=== PATIENT | female | born 1955 | race Caucasian/White ===

== ENCOUNTER 2023-12-27 10:31 | Outpatient (REF) | payer OTHER, SELFPAY ==
[2023-12-27 13:30] LABS: Alanine Aminotransferase 13 U/L (0-31); Albumin Level 4.3 g/dL (3.5-5.0); Alkaline Phosphatase 31 U/L (39-117); Anion Gap 12 (12-20); Aspartate Amino Transferase 13 U/L (5-31); Bilirubin Total 0.2 mg/dL (0.0-1.0); Blood Urea Nitrogen 39 mg/dL (9-16); Calcium 9.9 mg/dL (8.4-10.2); Carbon Dioxide 30 mmol/L (22-29); Chloride 105 mmol/L (96-108); Cholesterol 247 mg/dL (<200); Estimated Glomerular Filt Rate 35; Glucose Random 148 mg/dL (60-115); HDL Cholesterol 58 mg/dL (>40); LDL Cholesterol Calculated 132 mg/dL (<100); Potassium 4.7 mmol/L (3.3-5.1); Sodium 142 mmol/L (135-145); Total Protein 7.7 g/dL (6.5-8.0); Triglycerides 285 mg/dL (<150)
[2023-12-27 13:57] LABS: Creatinine Urine 78.73 mg/dL; Microalbum/Creatinine Ratio Ur 337.8 ug/mg cr (<30)
[2023-12-28 07:48] LABS: ~Hepatitis C Antibody Nonreactive (Nonreactive)
== END 2023-12-27 10:32 | disposition home or self-care (01) ==
LOC: HO.HHCL 10:31
PROVIDERS: Visit Provider General Practice
DX: E11.9 Type 2 diabetes mellitus without complications (principal)
CPT/HCPCS: 36415; 80053; 80061; 82043; 82570; 86803

== ENCOUNTER 2024-08-17 07:37 | Outpatient (REF) | payer OTHER, SELFPAY ==
--- NOTE | ~2024-08-17 | FL_ITS ---
EXAMINATION: XR FLUOROSCOPY BARIUM SWALLOW WITH AIR CLINICAL INFORMATION: Dysphagia. Pain in left neck. COMPARISON: None TECHNIQUE: Fluoroscopic air contrast upper GI examination was performed utilizing standard techniques with thin and thick barium and effervescent granules. Numerous spot images were obtained. FINDINGS: Lateral cine images of the oropharynx and hypopharynx demonstrate normal swallow mechanism with normal epiglottic inversion and soft palate elevation. On the initial swallow there was laryngeal penetration with thick barium. Subsequently there was gross tracheal aspiration, in which the examination was immediately terminated. Hypopharyngeal structures appear normal without evidence of mass or diverticulum. 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 Dual and single contrast images of the esophagus demonstrate a normal caliber and contour. 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 No masses or ulcerations are seen. Esophageal peristalsis is mildly disorganized. FLUOROSCOPY TIME: 1 minute 33 seconds Number of Spot Images: 0 Number of Cine: 5 DOSE AREA PRODUCT: 717.2 uGy-m2 (microgray-meter squared) FL/FL barium swallow with air IMPRESSION: 1. Gross tracheal aspiration was observed, in which the exam was immediately terminated. 2. Large bridging anterior osteophyte involving C3-C5 that is causing mild posterior compression of the hypopharynx. 3. 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 4. 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 This, in combination with severe cricopharyngeal achalasia results in moderate intraluminal narrowing of the cervical esophagus. This procedure was performed by Boone Borrego PA-C, and supervised by Dr. Skelton Electronically signed by: Nik Skelton MD 08/17/2024 04:28 PM [facility]
== END 2024-08-17 07:38 | disposition home or self-care (01) ==
LOC: HO.XRAY 07:37
PROVIDERS: PCP General Practice; Visit Provider Nurse Practitioner Primary Care
DX: R13.10 Dysphagia, unspecified (principal)
CPT/HCPCS: 74221

== ENCOUNTER → 2024-08-17 07:38 | Outpatient (BNV) | payer OTHER, SELFPAY | PROVIDERS: PCP General Practice; Visit Provider Physician Assistant Surgical | DX: R13.10 Dysphagia, unspecified (principal) | CPT/HCPCS: 74221 ==

== ENCOUNTER 2025-06-21 08:24 | Outpatient (REF) | payer OTHER, SELFPAY ==
--- NOTE | ~2025-06-21 | US_ITS ---
EXAMINATION: US RETROPERITONEAL LIMITED (RENAL ONLY) CLINICAL INFORMATION: Flank pain.. COMPARISON: None available. TECHNIQUE: Real-time imaging of the kidneys. FINDINGS: RIGHT KIDNEY: 11.2 x 4.3 x 5.5 cm (SAG x AP x TRV). The kidney is normal in size, contour, and echogenicity. Renal cortical thickness is normal. No calculi or focal parenchymal lesions. No hydronephrosis. LEFT KIDNEY: 10.5 x 5.2 x 5.8 cm (SAG x AP x TRV). The kidney is normal in size, contour, and echogenicity. Renal cortical thickness is normal. No calculi or focal parenchymal lesions. No hydronephrosis. US/US renal BI IMPRESSION: Normal renal ultrasound.. Electronically signed by: Nik Skelton MD 06/21/2025 08:55 AM EDT
--- OUTSIDE RECORDS SUMMARY | 2025-06-21 08:45 | XMS_ITS | Encounter Summary ---
Author Organization [employer] Address [address] [facility] 7t [place] [address] Care Team Providers Care Civil Estimator Name Role Phone Amanda Ramirez MD Primary Care Provider [phone] Encounter Details Date Type Department Care Team (Late st Contact Info) Description 12/08/2022 Orders Only [facility] MED & PEDS [address] [place], [place] [phone] Pam Gordillo LPN Social History Tobacco Use Types Packs/Day Years Used Date Smoking Tobacco: Never Assessed Comments Unknown Sex and Gender Information Value Date Recorded Sex Assigned at Female 07/26/2022 10:21 AM EDT Legal Sex Female 10:21 AM EDT Gender Identity Female 12/26/2023 4:57 PM EDT Sexual Orientation Choose not to disclose 2021 10:21 AM EDT documented as of this encounter Plan of Treatment Not on file documented as of this encounter Visit Diagnoses Not on filedocumented in this encounter Care Teams Civil Estimator Relationship Specialty Start Date End Date Amanda Ramirez MD [address] [place], [place] [phone] PCP - General Family Medicine 07/31/20 documented as of this encounter
--- OUTSIDE RECORDS SUMMARY | 2025-06-21 08:45 | XMS_ITS | Encounter Summary ---
Author Organization [employer] Address [address] [facility] [address] [place] [address] Care Team Providers Care Trestle Mainternance Laborer Name Role Phone Amanda Ramirez MD Primary Care Provider [phone] Encounter Details Date Type Department Care Team (Late st Contact Info) Description 10/24/2024 Orders Only [place] [facility] [address] [place], [place] [phone] Provider, MD Amalia Social History Tobacco Use Types Packs/Day Years Used Date Smoking Tobacco: Every Day Cigarettes Smokeless Tobacco: Never Housing Stability Answer Date Recorded What is your housing situation today? I have ame chong 12/19/[address] you li ve. Do you have problems with any of the following? None of the above 12/19/2023 Food Insecurity Answer Date Recorded Within the past 12 months, y ou worried that your food would run out before you got money to buy more: Never True 12/19/2023 Within the past 12 months,th e food you bought just didn't last and you didn't have enough money to get more: Never True Transportation Answer Date Recorded In the past 12 months, has l ack of transportation kept you from medical appts, meetings, work or from getting things needed for daily living? No 12/19/2023 Utilities Answer Date Recorded In the past 12 months, has t he electric, gas, oil or water company threatened to shut off services in your home? No 12/19/2023 Depression Answer Date Recorded Patient Health Questionnaire-2 Score 2 07/27/2024 Comments Unknown Sex and Gender Information Value Date Recorded Sex Assigned at Female 07/26/2022 10:21 AM EDT Legal Sex Female 10:21 AM EDT Gender Identity Female 12/26/2023 4:57 PM EDT Sexual Orientation Choose not to disclose 2021 10:21 AM EDT documented as of this encounter Plan of Treatment Not on file documented as of this encounter Procedures Procedure Name Priority Date/Time Associated Diagnosis Comments CT SOFT TISSUE NECK W CONTRAST Routine 10/18/2024 12:32 PM EST documented in this encounter Results * CT SOFT TISSUE NECK W CONTRAST (10/18/2024 12:32 PM EST) Anatomical Region Laterality Modality Computed Tomogra phy us Historical Provider MD ISSA CT PROCEDURES Final R esult documented in this encounter Visit Diagnoses Not on filedocumented in this encounter Care Teams Trestle Mainternance Laborer Relationship Specialty Start Date End Date Amanda Ramirez MD [address] [place] [id number] PCP - General Family Medicine 07/31/20 documented as of this encounter
--- OUTSIDE RECORDS SUMMARY | 2025-06-21 08:45 | XMS_ITS | Clinical Summary ---
Author Organization [address] [facility] Address [address] [place] [address] Phone Care Team Providers Care Mine Environmental Engineer Name Role Phone Amanda Ramirez MD Primary Care Provider [phone] Allergies No known active allergies Medications lisinopril-hydr oCHLOROthiazide (PRINZIDE,ZESTO RETIC) 10-12.5 mg per tablet Take 1 tablet by mouth 1 (one) time each day. Active cholecalciferol (VITAMIN D-3) 50 mcg (2,000 unit) capsule Take 1 capsule (2,000 Units total) by mouth 1 (one) time each day. 06/19/2024 Active aspirin 81 mg EC tablet Take 1 tablet (81 mg total) by mouth 1 (one) time each day. Active cetirizine (ZyrTEC) 10 mg tablet Take 1 tablet (10 mg total) by mouth 1 (one) time each day in the morning. Active sertraline (ZOLOFT) 50 mg tablet TAKE 1 TABLET (50 MG) BY MOUTH ONCE PER DAY. 08/22/2024 Active metFORMIN XR (GLUCOPHAGE-XR) 500 mg 24 hr tablet TAKE 1 TABLET (500 MG) BY MOUTH IN THE MORNING Active Active Problems Problem Noted Date Diagnosed Date Alcohol abuse 09/10/2005 Anxiety state 09/10/2005 Asthma 09/10/2005 Depression 09/10/2005 Immunizations Name Administration Dates Next Due Td, Unspecified 03/25/2004 Surgical History Surgery Date Site/Laterality Comments TONSILLECTOMY PROCEDURE: HISTORICAL TONSILLECTOMY Medical History Medical History Date Comments Depressive disorder, not els ewhere classified 09/10/2005 DX:Depressive disorder, not elsewhere classified Anxiety state, unspecified 09/10/2005 DX:An xiety state, unspecified Unspecified asthma(493.90) 09/10/2005 DX:Un specified asthma(493.90) Alcohol abuse, unspecified 09/10/2005 DX:Al cohol abuse, unspecified Family History Relation Name Status Comments Brother 1 Alive Brother 2 Alive Brother 3 diabetes Brother 4 diabetes Daughter 1 Alive HIV Daughter 2 Alive Father MVA, CAD. diabe albina Mother CAD Son Alive Social History Tobacco Use Types Packs/Day Years Used Date Smoking Tobacco: Former Cigarettes Q uit: 06/26/2006 Alcohol Use Standard Drinks/Week Comments No 0 (1 standard drink = 0.6 oz pur e alcohol) Comments Unknown Sex and Gender Information Value Date Recorded Sex Assigned at Not on file Legal Sex Female 7:29 AM EST Gender Identity Not on file Sexual Orientation Not on file Obstetrics History Last Filed Vital Signs Vital Sign Reading Time Taken Comments Blood Pressure 158/76 10/02/2024 8:28 AM EST Pulse 76 10/02/2024 8:28 AM EST Temperature - - Respiratory Rate - - Oxygen Saturation - - Inhaled Oxygen Concentration - - Weight 106 kg (233 lb) 10/02/2024 8:28 AM EST Height 172.7 cm (5' 8 ) 10/02/2024 8:28 AM EST Body Mass Index 35.43 10/02/2024 8:28 AM EST Plan of Treatment Upcoming Encounters Date Type Department Care Team (Late st Contact Info) Description 09/13/2025 1:50 PM EST Office Visit Gastroenterology - [place] [address] [facility] [address] [place] [phone] Chava Draper MD [address] [facility] [address] [place] [address] Health Maintenance Due Date Last Done Comments Breast Cancer Screening 1955 Diabetes: Annual Foot Exam 1963 Diabetes: Annual Retina Eye Exam 1965 Hepatitis A Vaccines (1 of 2 - Risk 2-dose series) 1972 Pneumococcal Vaccine: 50+ Years (1 of 2 - PCV) 1972 RSV Immunization Adult Patients (1 - Risk 60-74 years 1-dose series) 2013 Zoster Vaccines (3 of 3) 03/02/2022 022, 12/17/2016 Colorectal Cancer Screening: Colonoscopy 09/06/2024 Falls Risk Assessment 09/06/2024 Osteoporosis Screening (Bone Density Screening) 09/06/2024 Social Influencers of Health Screening 09/06/2024 Depression Screening 09/26/2024 Diabetes: Annual Urine Albumin-Creatinine Ratio (uACR) 10/02/2024 Diabetes: Blood Sugar Contro l Test (HGBA1C) 01/24/2025 07/27/2024 COVID-19 Vaccine ( - 2023-2 5 season) 2025 Influenza Vaccine (#1) 2025 , 06/11/2019, 07/13/2016 Diabetes: Annual GFR (Glomerular Filtration Rate) 10/02/2025 10/02/2024, 03/30/2010 Hypertension/CHF/CAD Annual BMP Blood Test 10/02/2025 10/02/2024, 03/30/2010 DTaP,Tdap,and Td Vaccines (3 - Td or Tdap) 07/20/2026 07/20/2016, 03/25/2004 Cholesterol Screening (Lipid Panel) 12/26/2028 12/27/2023, 03/30/2010 Hepatitis C Screening Completed 12/27/2023 HIB Vaccines Aged Out No longer eligi ble based on patient's age to complete this topic HPV Vaccines Aged Out No longer eligi ble based on patient's age to complete this topic Hepatitis B Vaccines Aged Out No long er eligible based on patient's age to complete this topic IPV Vaccines Aged Out No longer eligi ble based on patient's age to complete this topic MMR Vaccines Aged Out No longer eligi ble based on patient's age to complete this topic Meningococcal ACWY Vaccine Aged Out N o longer eligible based on patient's age to complete this topic Meningococcal B Vaccine Aged Out No l onger eligible based on patient's age to complete this topic RSV Immunization Patients Under 20 months Aged Out No longer eligible b ased on patient's age to complete this topic Varicella Vaccines Aged Out No longer eligible based on patient's age to complete this topic Procedures Procedure Name Priority Date/Time Associated Diagnosis Comments COMPREHENSIVE METABOLIC PANEL Routine 10/02/2024 9:12 AM EST Neck pain on left side Cervical osteophyte Achalasia of the cricopharyngeus muscle Abnormal barium swallow Aspiration pneumonia, unspecified aspiration pneumonia type, unspecified laterality, unspecified part of lung ([facility] V24, [facility] V28) LIPID PANEL Routine 03/30/2010 from Last 3 Months or Most Recently Relevant to Health Maintenance Results * (ABNORMAL) Comprehensive metabolic panel (10/02/2024 9:12 AM EST) Pathologist [facility] Sodium 135 133 - 145 mmol/L LAB CHEMISTRY METHOD 10/02/2024 4:16 PM [facility] Potassium 5.2 3.5 - 5.5 mmol/L LAB CHEMISTRY METHOD 10/02/2024 4:16 PM [facility] Chloride 107 96 - 110 mmol/L LAB CHEMISTRY METHOD 10/02/2024 4:16 PM [facility] CO2 26 21 - 32 mmol/L LAB CHEMISTRY METHOD 10/02/2024 4:16 PM [facility] Anion Gap 2(L) 3 - 11 LAB CHEMISTRY METHOD 10/02/2024 4:16 PM [facility] Glucose 142(H) 70 - 100 mg/dL LAB CHEMISTRY METHOD 10/02/2024 4:16 PM [facility] BUN 35(H) 5 - 25 mg/dL LAB CHEMISTRY METHOD 10/02/2024 4:16 PM [facility] Creatinine 1.62(H) 0.50 - 1.10 mg/dL LAB CHEMISTRY METHOD 10/02/2024 4:16 PM [facility] eGFR 34(L) >=60 mL/min/1. 73m2 LAB CHEMISTRY METHOD 10/02/2024 4:16 PM [facility] Comment:Calculation based on the Chronic Kidney Disease Epidemiology Collaboration (CKD-EPI) equation refit without adjustment for race. BUN/Creatinine Ratio 21.6 LAB CHEMISTRY METHOD 10/02/2024 4:16 PM [facility] Calcium 9.7 8.5 - 10.5 mg/dL LAB CHEMISTRY METHOD 10/02/2024 4:16 PM [facility] AST (SGOT) 14 10 - 42 unit/L LAB CHEMISTRY METHOD 10/02/2024 4:16 PM [facility] ALT (SGPT) 17 10 - 60 unit/L LAB CHEMISTRY METHOD 10/02/2024 4:16 PM [facility] Alkaline Phosphatase 38(L) 42 - 121 unit/L LAB CHEMISTRY METHOD 10/02/2024 4:16 PM [facility] Total Protein 7.6 6.0 - 8.0 g/dL LAB CHEMISTRY METHOD 10/02/2024 4:16 PM [facility] Albumin 4.0 3.2 - 5.0 g/dL LAB CHEMISTRY METHOD 10/02/2024 4:16 PM [facility] Total Bilirubin 0.3 0.0 - 1.4 mg/dL LAB CHEMISTRY METHOD 10/02/2024 4:16 PM [facility] Blood Venous blood specimen / Unknown Venipuncture / Unknown 10/02/2024 9:12 AM EST 10/02/2024 9:12 AM EST us Jose Alberto MODI LAB BLOOD ORDERABLES Final Resu lt [facility] [address] [place] [address], * (ABNORMAL) Lipid panel (03/30/2010) LDL/HDL Ratio 4 0 - 4 Triglycerides 192(A) 0 - 150 mg/dL Cholesterol 227(A) 0 - 200 mg/dL HDL 56 >=40 mg/dL LDL Cholesterol 133(A) 0 - 100 mg/dL Blood Venous blood specimen / Unknown us Historical Provider LAB BLOOD ORDERABLES Roxie l Result from Last 3 Months or Most Recently Relevant to Health Maintenance Insurance [facility] Care Teams Mine Environmental Engineer Relationship Specialty Start Date End Date Amanda Ramirez MD [address] [place] [id number] PCP - General Candy Starch Mold Printer 09/06/24
--- OUTSIDE RECORDS SUMMARY | 2025-06-21 08:45 | XMS_ITS | Encounter Summary ---
Author Organization [employer] Address [address] [facility] [address] 7[address] [place] [address] Care Team Providers Care Compliance Paralegal Name Role Phone Amanda Ramirez MD Primary Care Provider [phone] Reason for Visit * Reason Comments Med Refill Encounter Details Date Type Department Care Team (Late st Contact Info) Description 05/13/2025 Refill [facility] MEDICINE [address] [place], [place] [phone] Amanda Ramirez MD [address] [place], [place] [phone] Flank pain; Esophageal web; Aspiration pneumonia of left lung due to regurgitated food, unspecified part of lung (CMS/HCC) Social History Tobacco Use Types Packs/Day Years Used Date Smoking Tobacco: Every Day Cigarettes Smokeless Tobacco: Never Alcohol Answer Date Recorded How often do you have a drink containing alcohol ? 3 02/10/2025 How many drinks containing a lcohol do you have on a typical day when you are drinking? 1 02/10/2025 How often do you have six or more drinks on one occasion? 0 02/10/2025 Depression Answer Date Recorded Patient Health Questionnaire-9 Score 25 05/13/2025 Patient Health Questionnaire-9 Score 25 05/13/2025 Last PHQ-9: Questionnaire Data Not on file 0 05/13/2025 Housing Stability Answer Date Recorded What is your housing situation today? I have ame chong 05/03/[address] you li ve. Do you have problems with any of the following? None of the above 05/03/2025 Food Insecurity Answer Date Recorded Within the past 12 months, y ou worried that your food would run out before you got money to buy more: Never True 05/03/2025 Within the past 12 months,th e food you bought just didn't last and you didn't have enough money to get more: Never True 04/2025 Transportation Answer Date Recorded In the past 12 months, has l ack of transportation kept you from medical appts, meetings, work or from getting things needed for daily living? No 05/03/2025 Utilities Answer Date Recorded In the past 12 months, has t he electric, gas, oil or water company threatened to shut off services in your home? No 05/03/2025 Depression Answer Date Recorded Patient Health Questionnaire-2 Score 6 05/13/2025 Internet Access Answer Date Recorded Internet Access Q1 Yes 05/03/2025 Internet Access Q2 Not on file 05/03/2025 Comments No Sex and Gender Information Value Date Recorded Sex Assigned at Female 07/26/2022 10:21 AM EDT Legal Sex Female 10:21 AM EDT Gender Identity Female 12/26/2023 4:57 PM EDT Sexual Orientation Choose not to disclose 2021 10:21 AM EDT documented as of this encounter Functional Status * Over the past 2 weeks, how often have you been bothered by any of the following problems? Question Answer Date of Assessment Author Patient Health Questionnaire-2 Score 6 05/13/2025 1:58 PM EDT Zeinab Beach [place] * Little interest or pleasure in doing things Answer Date of Assessment Author Nearly every day 05/13/2025 1:58 PM EDT Zeinab Palencia MA * Feeling down, depressed, or hopeless Answer Date of Assessment Author Nearly every day 05/13/2025 1:58 PM EDT Zeinab Palencia MA * Trouble falling or staying asleep, or sleeping too much Answer Date of Assessment Author Nearly every day 05/13/2025 1:58 PM EDT Zeinab Palencia MA * Feeling tired or having little energy Answer Date of Assessment Author Nearly every day 05/13/2025 1:58 PM EDT Zeinab Palencia MA * Poor appetite or overeating Answer Date of Assessment Author Nearly every day 05/13/2025 1:58 PM EDT Zeinab Palencia MA * Feeling bad about yourself - or that you are a failure or have let yourself or your family down Answer Date of Assessment Author Nearly every day 05/13/2025 1:58 PM EDT Zeinab Palencia MA * Trouble concentrating on things, such as reading the newspaper or watching television Answer Date of Assessment Author Nearly every day 05/13/2025 1:58 PM EDT Zeinab Palencia MA * Moving or speaking so slowly that other people could have noticed? Or the opposite - being so fidgety or restless that you have been moving around a lot more than usual. Answer Date of Assessment Author Nearly every day 05/13/2025 1:58 PM EDT Zeinab Palencia MA * Thoughts that you would be better off or hurting yourself in some way Answer Date of Assessment Author Several days 05/13/2025 1:58 PM BELKIST Zeinab Prieto MA * Patient Health Questionnaire-9 Score Answer Date of Assessment Author 05/13/2025 1:58 PM EDT Zeinab Prieto MA * How difficult have these problems made it for you to do your work, take care of things at home, or get along with other people? Answer Date of Assessment Author Very difficult 05/13/2025 1:58 PM EDT Zeinab Prieto MA * Over the last 2 weeks, how often have you been bothered by any of the following problems? Question Answer Date of Assessment Author Feeling nervous, anxious, or on edge 3 05/13/2025 1:58 PM EDT Zeinab Beach MA Not being able to stop or control worrying 3 05/13/2025 1:58 PM BELKIST Zeinab Beach MA Worrying too much about different things 3 05/13/2025 1:58 PM BELKIST Zeinab Beach MA Trouble relaxing 2 05/13/2025 1:58 PM EDT Zeinab Banda MA Being so restless that it is hard to sit still 3 05/13/2025 1:58 PM EDT Zeinab Beach MA Becoming easily annoyed or irritable 3 05/13/2025 1:58 PM EDT Zeinab Beach MA Feeling afraid as if something awful might happen 2 05/13/2025 1:58 PM EDT Zeniab Palencia MA HAWA-7 Total Score 19 05/13/2025 1:58 PM EDT Zeinab Beach MA documented as of this encounter Plan of Treatment Not on file documented as of this encounter Visit Diagnoses Diagnosis Flank pain Abdominal pain, unspecified site Esophageal web Congenital tracheoesophageal fistula, esophageal atresia and stenosis Aspiration pneumonia of left lung due to regurgitated food, unspecified part of lung (CMS/[facility]) documented in this encounter Additional Health Concerns Assessment Noted Time PHQ-9 Depression Total Score: 25 025 1:58 PM EDT documented as of this encounter Care Teams Compliance Paralegal Relationship Specialty Start Date End Date Amanda Ramirez MD [address] [place] [id number] PCP - General Family Medicine 07/31/20 documented as of this encounter
--- OUTSIDE RECORDS SUMMARY | 2025-06-21 08:45 | XMS_ITS | Encounter Summary ---
Author Organization [employer] Address [address] [facility] 7t [place] [address] Care Team Providers Care Buckle Inspector Name Role Phone Amanda Ramirez MD Primary Care Provider [phone] Encounter Details Date Type Department Care Team (Late st Contact Info) Description 03/07/2023 Orders Only [facility] MEDICINE [address] [place], [place] [phone] Franci Mathis LPN Social History Tobacco Use Types Packs/Day [...] on filedocumented in this encounter Care Teams Buckle Inspector Relationship Specialty Start Date End Date Amanda Ramirez MD [address] [place], [place] [phone] PCP - General Family Medicine 07/31/20 documented as of this encounter
--- OUTSIDE RECORDS SUMMARY | 2025-06-21 08:45 | XMS_ITS | Clinical Summary ---
Author Organization [employer] Address [address] [place] [address] Care Team Providers Care Laser Printing Operator Name Role Phone Amanda Ramirez MD Primary Care Provider Allergies No known active allergies Medications * This document contains information received from the source organization and may not represent a complete record from that organization. cetirizine (ZyrTEC) 10 MG tablet TAKE 1 TABLET BY MOUTH EVERY DAY IN THE MORNING 90 tablet 3 5 Active sertraline (Zoloft) 50 MG tabletIndications :Anxiety state,Depressive disorder Take 1 tablet (50 mg) by mouth Once per day. 90 tablet 3 5 Active aspirin (Aspirin Low Dose) 81 MG EC tabletIndications :Essential hypertension Take 1 tablet (81 mg) by mouth Once per day. 90 tablet 3 5 Active cholecalciferol VITAMIN D (Vitamin D-3) 50 MCG (2000 UT) capsule Take 1 capsule (50 mcg) by mouth Once per day. 90 capsule 3 5 Active lisinopril-hydroC HLOROthiazide 10-12.5 MG tabletIndications :Essential hypertension Take 1 tablet by mouth Once per day. 90 tablet 3 5 Active fluticasone (Flonase) 50 MCG/ACT nasal spray SPRAY 1 TO 2 SPRAYS INTO EACH NOSTRIL ONCE PER DAY. SHAKE GENTLY. BEFORE FIRST USE, PRIME PUMP. AFTER USE, CLEAN TIP AND REPLACE CAP. 48 mL 3 5 Active modafinil (Provigil) 100 MG tablet Take 1 tablet (100 mg) by mouth Once per day. 30 tablet 5 Active Active Problems Problem Noted Date Diagnosed Date Stage 3a chronic kidney disease 05/14/2025 Assessment & Plan (05/14/2025 11:04 AM EDT): Reviewed most recent Cr 1.6 and eGFR 34 Repeat labs Encouraged hydration and avoid NSAIDs Flank pain 02/10/2025 Assessment & Plan (02/10/2025 7:09 PM EDT): Pain in low back and flanks with positive R SLR Doubt infection, as abscence of symptoms/fever. She may have repeat kidney stones, so ordered renal ultrasound to rule that out or in. Increase fluids, anthony acidified fluids in the meantime. - will prescribe Prednisone and Flexeril for sciatica and back muscle spasms - ER precautions for fever, worsening pain despite medication Aspiration pneumonia of left lung 08/28/2024 Assessment & Plan (08/28/2024 1:10 PM EST): Suspect aspiration pneumonia/oral infection as cause of swelling Will treat with Augmentin x 10 days Esophageal web 08/28/2024 Assessment & Plan (05/14/2025 11:02 AM EDT): Referred to GI for EGD and dilation, she is still thinking about whether to get this done Phone number given to schedule, encouraged this due to choking risk Assessment & Plan (02/10/2025 7:02 PM EDT): Referred to GI for EGD and dilation, she is still thinking about whether to get this done Having facial pain and pain in throat- possible aspiration pneumonia, or local infection Assessment & Plan (08/28/2024 1:06 PM EST): Referred to GI for EGD and dilation Cervical arthritis 08/28/2024 Cricopharyngeal achalasia 08/28/2024 Foot pain 12/26/2023 Nicotine dependence 12/26/2023 Peripheral vascular disease 12/26/2023 Assessment & Plan (12/27/2023 1:52 PM EDT): Still with pain after vein procedure at [facility] two years ago Does not want to see another vascular surgeon currently, so will defer further evaluation at this time Essential hypertension 10/25/2021 Assessment & Plan (05/14/2025 10:59 AM EDT): At goal Continue current regimen Assessment & Plan (02/10/2025 7:00 PM EDT): Has not taken medication yet today because she is in pain Declines repeating BP or further intervention Recommend resuming BP medication as soon as possible Assessment & Plan (08/28/2024 1:08 PM EST): Continue combo therapy Labs checked today Not on statin-- declines, will continue to revisit Taking ASA 81mg Assessment & Plan (12/27/2023 1:50 PM EDT): Continue combo therapy Labs checked today Not on statin Taking ASA 81mg Type 2 diabetes mellitus 10/25/2021 Assessment & Plan (05/14/2025 11:00 AM EDT): Hold Metformin 500mg daily and monitor in 3 months A1C at goal On ASA 81mg Assessment & Plan (02/10/2025 7:02 PM EDT): Continue Metformin 500mg daily A1C at goal On ASA 81mg Assessment & Plan (08/28/2024 1:09 PM EST): Continue Metformin 500mg daily A1C at goal On ASA 81mg Assessment & Plan (12/27/2023 1:50 PM EDT): Continue Metformin 500mg daily Labs today A1C at goal Depressive disorder 03/16/2012 Assessment & Plan (05/14/2025 11:05 AM EDT): Trial augmentation with Modafanil Assessment & Plan (01/03/2024 10:16 AM EDT): Behavioral Health Integration Plan External OP therapy referral and OP psychiatry Referral Patient Self Plan Patient to reach out to [facility] team as needed, Comply with medication , Patient to engage in OP therapy , Patient to reach out to [facility] as needed, and Patient to follow-up with external team Assessment & Plan (12/27/2023 1:54 PM EDT): Invited to come meet with patient, no safety concerns She was referred for therapy and psychiatry for further diagnostic formulation Discontinue Zoloft as it is not helping her symptoms Dyspnea 03/16/2012 Assessment & Plan (12/27/2023 1:52 PM EDT): Likely multi-factorial, asthma, deconditioning, heart disease Alcohol abuse 09/10/2005 Anxiety state 09/10/2005 Asthma 09/10/2005 Encounters Date Type Department Care Team Description 05/13/2025 2:00 PM EDT Office Visit [facility] [address] [place] [address] Amanda Ramirez MD Esophageal web (Primary Dx); Mild persistent asthma without complication; Type 2 diabetes mellitus with hyperglycemia, without long-term current use of insulin ([facility]); Stage 3a chronic kidney disease (CMS/[facility]); Depressive disorder; Cricopharyngeal achalasia; Essential hypertension; Cellulitis of head except face 05/13/2025 Travel 05/13/2025 Refill [facility] [address] [place] [address] Amanda Ramirez MD Flank pain; Esophageal web; Aspiration pneumonia of left lung due to regurgitated food, unspecified part of lung (CMS/HCC) 05/09/2025 Telephone [facility] [address] [place] [address] Amanda Ramirez MD 05/06/2025 Refill [facility] [address] [place] [address] Amanda Ramirez MD 05/03/2025 Patient Outreach [facility] [address] [place] [address] Amanda Ramirez MD Pre-visit Planning (SDOH screening negative and Tobacco screening negative) 03/23/2025 Refill [facility] [address] [place] [address] Amanda Ramirez MD Type 2 diabetes mellitus with hyperglycemia, without long-term current use of insulin ([facility]) from Last 3 Months Immunizations Immunization Administration Dates Next Due Influenza injectable quadriv alent IIV4 with preservative 06/11/2019,07/13/2016 Influenza, High Dose Seasonal, Preservative Free 07/27/2024 Td (adult), unspecified 03/25/2004 Tdap 07/20/2016 Zoster, Recombinant 01/05/2022 Zoster, live 12/17/2016 Social History Tobacco Use Types Packs/Day Years Used Date Smoking Tobacco: Every Day Cigarettes Smokeless Tobacco: Never Tobacco Cessation:Ready to Q uit: Not Asked; Counseling Given: Not Answered Alcohol Answer Date Recorded How often do [...] not to disclose 2021 10:21 AM EDT Last Filed Vital Signs Vital Sign Reading Time Taken Comments Blood Pressure 138/72 05/13/2025 1:56 PM EDT Pulse 84 05/13/2025 1:56 PM EDT Temperature 36.2 C (97.2 F) 05/13/2025 1:56 PM EDT Respiratory Rate 20 05/13/2025 1:56 PM EDT Oxygen Saturation 100% 02/08/2025 11:14 AM EDT Inhaled Oxygen Concentration - - Weight 105 kg (231 lb 6.4 oz) 05/13/2025 1:56 PM EDT Height 168.9 cm (5' 6.5 ) 05/13/2025 1:56 PM EDT Body Mass Index 36.79 05/13/2025 1:56 PM EDT Plan of Treatment Health Maintenance Due Date Last Done Comments CT Colonography 1953 Colonoscopy 1953 Colorectal Cancer Screening 1953 FIT DNA/Cologuard 1953 FIT 1953 FOBT 1953 Sigmoidoscopy 1953 Diabetes: Foot Exam 1963 Eye Exam 1963 Pneumococcal Vaccine: 50+ Years (1 of 2 - PCV) 1972 Mammogram 1993 RSV Patients and Patients Aged 60 years or older (1 - Risk 60-74 years 1-dose series) 2013 Zoster Vaccines (3 of 3) 03/02/2022 01/05/2022, 11/25 Diabetes: Urine Protein Screening 12/26/2024 12/27/2023 Lipid Panel 12/26/2024 12/27/2023 COVID-19 Vaccine ( - season) 2025 Influenza Vaccine (#1) 2025 , 06/11/2019, 07/13/2016 Depression Monitoring 11/13/2025 05/13/2025, 025 Diabetes: Hemoglobin A1C 11/13/2025 025, 02/08/2025, 07/27/2024, Additional history exists Alcohol/Substance Use Screening 02/10/2026 02/10/2025 SDOH Screening 05/03/2026 05/03/2025 Tobacco Screening 05/13/2026 05/13/2025 DTaP/Tdap/Td Vaccines (2 - Td or Tdap) 07/20/2026 07/20/2016, 03/25/2004 Hepatitis C Screening Completed 12/27/2023 HIB Vaccines Aged Out No longer eligi ble based on patient's age to complete this topic HPV Vaccines Aged Out No longer eligi ble based on patient's age to complete this topic Hepatitis A Vaccines Aged Out No long er eligible [...] patient's age to complete this topic Meningococcal Vaccine Aged Out No mikael aubrie eligible based on patient's age to complete this topic RSV under 20 months Aged Out No longe r eligible based on patient's age to complete this topic Rotavirus Vaccines Aged Out No longer eligible based on patient's age to complete this topic Procedures Procedure Name Priority Date/Time Associated Diagnosis Comments POCT GLYCATED HEMOGLOBIN, TOTAL Routine 05/13/2025 2:07 PM EDT Type 2 diabetes mellitus with hyperglycemia, without long-term current use of insulin (CMS/HCC) POCT GLUCOSE Routine 05/13/2025 2:04 PM EDT Type 2 diabetes mellitus with hyperglycemia, without long-term current use of insulin (CMS/HCC) HEPATITIS C AB W/REFL TO HCV RNA, QN, PCR Routine 12/27/2023 10:33 AM EDT Type 2 diabetes mellitus without complication, without long-term current use of insulin (CMS/HCC) ALBUMIN, RANDOM URINE W/CREATININE Routine 12/27/2023 10:33 AM EDT Type 2 diabetes mellitus without complication, without long-term current use of insulin (CMS/HCC) LIPID PANEL, STANDARD Routine 12/27/2023 10:33 AM EDT Type 2 diabetes mellitus without complication, without long-term current use of insulin ([facility]) from Last 3 Months or Most Recently Relevant to Health Maintenance Results * (ABNORMAL) POCT HGB A1C (05/13/2025 2:07 PM EDT) Hemoglobin A1C 5.9(A) 4.0 - 5.7 % QC Media Lot # [id number] Lot# Expiration Date Blood 05/13/2025 2:07 PM EDT Amanda Ramirez MD POINT OF CARE TEST ENTER/EDIT ORDERABLES Final Result * POCT Glucose (05/13/2025 2:04 PM EDT) Glucose Blood, POC 97 60 - 200 mg/dL Blood Capillary blood specimen / Unknown 05/13/2025 2:04 PM EDT Amanda Ramirez MD POINT OF CARE TEST ENTER/EDIT ORDERABLES Final Result * (ABNORMAL) Albumin, Random Urine W/Creatinine (12/27/2023 10:33 AM EDT) Creatinine, Urine 78.73 mg/dL [facility] Microalbumin Urine 266.0 mg/L [facility] Microalbum Creatinine Ratio Ur 337.8(H) <30 ug/mg cr [facility] Comment:Albumin/Creatinine R atio Reference Ranges: Normal: < 30 ug/mg creatinine Microalbuminuria: 30 - 300 ug/mg creatinineClinical Albuminuria: > 300 ug/mg creatinine Urine (Urine, Random) 12/27/2023 10:33 AM EDT 12/27/2023 12:58 PM EDT us Amanda Ramirez MD LAB URINE ORDERABLES Final Res ult [facility] [address] [place] [address] [phone] * Hepatitis C Antibody with Reflex to HCV, RNA, Quantitative, Real-Time PCR (12/27/2023 10:33 AM EDT) Hepatitis C Antibody Nonreactive Nonreactive [facility] Comment:Antibodies to HCV no t detected; does not exclude early acuteHCV infection. Blood Venous blood specimen / Unknown 12/27/2023 10:33 AM EDT 12/27/2023 12:47 PM EDT us Amanda Ramirez MD LAB BLOOD ORDERABLES Final Res ult [facility] [address] [place] [phone] [phone] * (ABNORMAL) Lipid Panel, Standard (12/27/2023 10:33 AM EDT) Triglycerides 285(H) <150 mg/dL [facility] Comment:Desirable Triglyceri de: less than 150 mg/dLBorderline High Triglyceride 150-199 mg/dLHigh Triglyceride: 200-499 mg/dLVery High Triglyceride: greater than or equal to 5OO mg/dL Cholesterol 247(H) <200 mg/dL [facility] Comment:Desirable Cholestero l: less than 200 mg/dLBorderline High Cholesterol: 200-239 mg/dLHigh Cholesterol: greater than 239 mg/dL LDL Cholesterol Calculated 132(H) <100 mg/dL [facility] Comment:Desirable LDL: less than 100 mg/dLNear Optimal/Above Optimal LDL: 110- 129 mg/dLBorderline High LDL: 130-159 mg/dLHigh LDL: 160-189 mg/dLVery High LDL: greater than or equal to 190 mg/dL HDL Cholesterol 58 >40 mg/dL [facility] Comment:Desirable HDL: great er than 40 mg/dL Note: This HDL assay may give artificially low results in patients with liver disease. Blood Venous blood specimen / Unknown 12/27/2023 10:33 AM EDT 12/27/2023 12:47 PM EDT us Amanda Ramirez MD LAB BLOOD ORDERABLES Final Res ult [facility] [address] [place] [address] [phone] from Last 3 Months or Most Recently Relevant to Health Maintenance Insurance [facility] [address] [place] [address] [facility] [place] [address] [facility] [place] [address] [facility] [place] [address] Care Teams Laser Printing Operator Relationship Specialty Start Date End Date Amanda Ramirez MD [address] [place] [address] PCP - General Family Medicine 07/31/20
--- OUTSIDE RECORDS SUMMARY | 2025-06-21 08:45 | XMS_ITS | Encounter Summary ---
Author Organization [employer] Address [address] [place] [address] Care Team Providers Care Medicine Teacher Name Role Phone Amanda Ramirez MD Primary Care Provider [phone] Reason for Visit * Reason Comments Med Refill Encounter Details Date Type Department Care Team (Late st Contact Info) Description 03/14/[address] [facility] [address] [place], [place] [phone] Amanda Ramirez MD [address] [place], [place] [phone] Social History Tobacco Use Types Packs/Day Years Used Date Smoking Tobacco: Never Smokeless Tobacco: Never Housing Stability Answer Date Recorded What is your housing situation today? I have ameany chong 12/19/[address] you [...] off services in your home? No 12/19/2023 Comments Unknown Sex and Gender Information Value [...] on filedocumented in this encounter Care Teams Medicine Teacher Relationship Specialty Start Date End Date Amanda Ramirez MD [address] [place] [address] PCP - General Family Medicine 07/31/20 documented as of this encounter
== END 2025-06-21 08:25 | disposition home or self-care (01) ==
LOC: HO.HMGCX 08:24
PROVIDERS: PCP General Practice; Visit Provider General Practice
DX: R10.9 Unspecified abdominal pain (principal)
CPT/HCPCS: 76775

== ENCOUNTER → 2025-06-21 08:26 | Outpatient (BNV) | payer OTHER, SELFPAY | PROVIDERS: PCP General Practice; Visit Provider Radiology Diagnostic Radiology | DX: R10.9 Unspecified abdominal pain (principal) | CPT/HCPCS: 76775 ==